=== PATIENT | male | born 1970 | race Caucasian/White ===

== ENCOUNTER 2017-03-22 13:50 | Observation (INO) | payer MEDICARE, OTHER ==
[~2017-03-22] VITALS: Ht 172.7 cm; Wt 98.2 kg
[2017-03-22 15:45] LABS: RED BLOOD COUNT 4.88 M/UL (4.20-5.50); WHITE BLOOD COUNT 6.3 K/UL (4.5-11.0)
[2017-03-22 16:06] LABS: BUN/CREATININE RATIO 19 (0-10)
[2017-03-22] MEDS ORDERED: NEURONTIN 300300 MG PO (22:50)
[2017-03-22] MEDS ORDERED: LORTAB 7.5-3251 EACH PO (22:51)
[2017-03-23 04:39] LABS: HEMOGLOBIN 15.3 gm/dl (14.0-17.5); RED BLOOD COUNT 5.01 M/UL (4.20-5.50); WHITE BLOOD COUNT 6.6 K/UL (4.5-11.0)
[2017-03-23 05:05] LABS: BUN/CREATININE RATIO 16 (0-10)
[2017-07-26] MEDS ORDERED: OMEPRAZOLE20 MG PO (20:51)
[2017-07-28] MEDS ORDERED: DOXYCYCLINE HY100 M2 PO (13:56)
== END 2017-03-23 18:30 | disposition home or self-care (01) ==
LOC: ER1 13:50 → ZEROF 17:45 → M/S 21:12
PROVIDERS: Emergency Medicine; ADMIT Internal Medicine
DX: R53.83 Other fatigue (principal); R42 Dizziness and giddiness; R40.0 Somnolence; I65.23 Occlusion and stenosis of bilateral carotid arteries; G93.40 Encephalopathy, unspecified; M19.90 Unspecified osteoarthritis, unspecified site; Z82.49 Family history of ischemic heart disease and other diseases of the circulatory system; Z82.3 Family history of stroke; Z79.891 Long term (current) use of opiate analgesic; Z79.899 Other long term (current) drug therapy
CPT/HCPCS: ECHO; 36415; 36600; 70450; 70551; 71010; 80048; 80053; 80307; 81001; 82140; 82550; 82553; 82803; 83874; 84443; 84484; 85025; 85379; 87040; 93005; 93306; 93880; 94664; 96361; 96374; 99285; G0378; J2310; J7030

== ENCOUNTER → 2022-03-09 | Outpatient (CLI) | payer MEDICARE, OTHER ==
[~2022-03-09] MED LIST: DOXYCYCLINE HY100 M2 PO; LORTAB 7.5-3251 EACH PO; NEURONTIN 300300 MG PO; OMEPRAZOLE20 MG PO
== END ==
LOC: KOH-I 10:42
DX: M47.26 Other spondylosis with radiculopathy, lumbar region (principal)
CPT/HCPCS: 72100